=== PATIENT | female | born 2005 | race Two or more races ===

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

== ENCOUNTER 2023-01-21 18:50 | Inpatient (IN) | payer MEDICAID ==
[~2023-01-21] VITALS: Ht 172.7 cm; Wt 68.1 kg
[~2023-01-21 18:50] MED LIST: FER325T PO; NAPR-746 PO
[2023-01-21] MEDS ORDERED: NALOXONE HCL 1MG/ML 2ML SYRINGE IV ONE (19:00)
[2023-01-21 19:35] LABS: Basophils # (auto) 0.1 10 ^3/uL (0-0.2); Eosinophils # (auto) 0.1 10 ^3/uL (0-0.8); Mean Corpuscular Volume 63.8 fL (80.0-100.0); Nucleated Red Blood Cells % 0.1 %; White Blood Cell 10.2 10^3/uL (4.4-10.8)
[2023-01-21 19:37] LABS: Basophils % (auto) 0.5 % (0.0-2.0); Eosinophils % (auto) 0.7 % (0.0-7.0); Hematocrit 25.9 % (36.0-46.0); Hemoglobin 7.9 g/dL (12.2-16.2); Lymphocytes # (auto) 2.2 10 ^3/uL (0.4-5.4); Lymphocytes % (auto) 21.2 % (10.0-50.0); Mean Corpuscular Hemoglobin 19.3 pg (28.0-32.0); Mean Corpuscular Hgb Conc. 30.3 g/dL (32.0-36.0); Monocytes # (auto) 0.6 10 ^3/uL (0-1.3); Monocytes % (auto) 5.4 % (0.0-12.0); Neutrophils # (auto) 7.3 10 ^3/uL (1.6-8.6); Neutrophils % (auto) 72.2 % (37.0-80.0); Red Blood Cells 4.07 10^6/uL (4.0-5.20)
[2023-01-21 19:44] LABS: Red Cell Distribution Width 21.4 % (11.8-14.3)
[2023-01-21 19:55] LABS: INR 1.01 (0.9-1.15); Partial Thromboplastin Time 23.6 SEC (24.5-34.5)
[2023-01-21 19:56] LABS: Albumin 3.5 g/dL (3.4-5.0); Calcium 8.3 mg/dL (8.5-10.1); Magnesium 2.6 mg/dL (1.6-2.6); Potassium 3.7 mmol/L (3.5-5.1)
[2023-01-21 20:01] LABS: BUN/Creatinine Ratio 13.5 (10.0-20.0); Bilirubin, Total 0.2 mg/dL (0.2-1.0); Total Protein 7.2 g/dL (6.4-8.2)
[2023-01-21] MEDS ORDERED: ONDANSETRON HCL 4 MG/2 ML VIAL IV PRN (21:15)
[2023-01-21] MEDS ORDERED: SODIUM CHLORIDE 0.9% 1,000 ML IV SCH (21:15)
[2023-01-21] MEDS ORDERED: HYDROcodone-ACET 5/325MG TAB PO PRN (21:15)
[2023-01-21] MEDS ORDERED: ACETAMINOPHEN 325 MG TAB PO PRN (21:15)
[2023-01-21] MEDS ORDERED: DOCUSATE SOD 100 MG CAP PO PRN (21:15)
[2023-01-21] MEDS ORDERED: FOLIC ACID 1 MG, MULTIPLE VITAMIN 10 ML, MAGNESIUM SULF SDV 50% 8 MEQ, THIAMINE INJ 100... INJ SCH ×5 (21:17)
[2023-01-21 22:00] LABS: Urine Bacteria NONE SEEN /hpf (None Seen); Urine Blood Negative /uL (Negative); Urine Mucus FEW (None Seen); Urine Specific Gravity 1.012 (1.001-1.035); Urine WBC 1 /hpf (0 - 5)
[2023-01-21 22:11] LABS: Cannabinoid Screen, Urine NEGATIVE (NEGATIVE)
[2023-01-21 22:13] LABS: Amphetamine Screen, Urine NEGATIVE (NEGATIVE); Barbiturate Scree,Urine NEGATIVE (NEGATIVE); Benzodiazephine Screen, Urine NEGATIVE (NEGATIVE); Cocaine Screen, Urine NEGATIVE (NEGATIVE); Opiate Scree,Urine NEGATIVE (NEGATIVE); Phencyclidine Screen, Urine NEGATIVE (NEGATIVE)
[2023-01-22] MEDS ORDERED: MORPHINE SULFATE INJ 2 MG/ml SYRG IV PRN
[2023-01-22] MEDS ORDERED: NITROGLYCERIN 0.4 MG SL TAB SL PRN
[2023-01-22 05:49] LABS: Eosinophils # (auto) 0.1 10 ^3/uL (0-0.8); Mean Corpuscular Hemoglobin 19.4 pg (28.0-32.0); Mean Corpuscular Hgb Conc. 30.1 g/dL (32.0-36.0)
[2023-01-22 05:52] LABS: Basophils # (auto) 0.1 10 ^3/uL (0-0.2); Basophils % (auto) 0.6 % (0.0-2.0); Eosinophils % (auto) 1.1 % (0.0-7.0); Hematocrit 24.3 % (36.0-46.0); Hemoglobin 7.3 g/dL (12.2-16.2); Lymphocytes % (auto) 21.1 % (10.0-50.0); Mean Corpuscular Volume 64.4 fL (80.0-100.0); Monocytes # (auto) 0.5 10 ^3/uL (0-1.3); Monocytes % (auto) 5.6 % (0.0-12.0); Neutrophils # (auto) 6.7 10 ^3/uL (1.6-8.6); Neutrophils % (auto) 71.6 % (37.0-80.0); Red Blood Cells 3.78 10^6/uL (4.0-5.20); White Blood Cell 9.4 10^3/uL (4.4-10.8)
[2023-01-22 06:08] LABS: Albumin 2.9 g/dL (3.4-5.0); Calcium 7.7 mg/dL (8.5-10.1)
[2023-01-22 06:12] LABS: Bilirubin, Total 0.2 mg/dL (0.2-1.0); Total Protein 6.9 g/dL (6.4-8.2)
[2023-01-22 08:00] VITALS: BP 120/69
[2023-01-22 08:19] LABS: BUN/Creatinine Ratio 12.3 (10.0-20.0)
[2023-01-22] MEDS ORDERED: THIAMINE HCL 100 MG TAB PO SCH (10:00)
[2023-01-22] MEDS ORDERED: MULTIPLE VITAMIN TAB PO SCH (10:00)
[2023-01-22] MEDS ORDERED: FOLIC ACID 1 MG TAB PO SCH (10:00)
[2023-01-22] MEDS ORDERED: FOLIC ACID 1 MG, MULTIPLE VITAMIN 10 ML, MAGNESIUM SULF SDV 50% 8 MEQ, THIAMINE INJ 100... INJ SCH ×5 (12:00)
== END 2023-01-22 09:34 | disposition left against medical advice (07) | DRG 861 ==
LOC: ER 18:50 → EDBD 18:50 → TELE 23:50
PROVIDERS: ADMIT Nurse Practitioner Family; ATTEND Nurse Practitioner Family
DX: R41.82 Altered mental status, unspecified (principal); D64.9 Anemia, unspecified; F10.129 Alcohol abuse with intoxication, unspecified; Z53.29 Procedure and treatment not carried out because of patient's decision for other reasons
CPT/HCPCS: 36415; 70450; 71045; 80053; 80307; 80320; 81001; 83605; 83735; 84484; 84702; 85025; 85379; 85610; 85730; 86850; 86900; 86901; 87040; 93005; 96365; 96375; G0378

== ENCOUNTER 2024-02-02 18:00 | Observation (INO) | payer OTHER ==
[~2024-02-02] VITALS: Ht 170.2 cm; Wt 82.6 kg
== END 2024-02-02 20:43 | disposition home or self-care (01) ==
LOC: LDRP 18:00
PROVIDERS: ADMIT Obstetrics & Gynecology; ATTEND Obstetrics & Gynecology
DX: O36.8130 Decreased fetal movements, third trimester, not applicable or unspecified (principal); Z3A.33 33 weeks gestation of pregnancy
CPT/HCPCS: 59025; 76818; 81002; 94760; G0378

== ENCOUNTER 2024-02-05 00:04 | Observation (INO) | payer OTHER ==
[~2024-02-05] VITALS: Ht 170.2 cm; Wt 82.6 kg
[2024-02-05] MEDS ORDERED: LACTATED RINGER'S 1,000 ML IV SCH (00:15)
[2024-02-05] MEDS: TERBUTALINE SULFATE 1 MG/ML 1ML VIAL SC ONE (00:44)
[2024-02-05] MEDS ORDERED: TERBUTALINE SULFATE 1 MG/ML 1ML VIAL SC SCH (00:45)
[2024-02-05] MEDS: LACTATED RINGER'S 1,000 ML IV ONE (00:48)
== END 2024-02-05 02:07 | disposition home or self-care (01) ==
LOC: LDRP 00:04
PROVIDERS: ADMIT Obstetrics & Gynecology; ATTEND Obstetrics & Gynecology
DX: O36.8130 Decreased fetal movements, third trimester, not applicable or unspecified (principal); O62.9 Abnormality of forces of labor, unspecified; Z3A.33 33 weeks gestation of pregnancy; Z79.899 Other long term (current) drug therapy
CPT/HCPCS: 59025; 76805; 81002; 96360; 96361; G0378; J3105